=== PATIENT | female | born 1970 | race Caucasian/White ===

== ENCOUNTER 2016-11-14 14:14 | Emergency (ER) | payer OTHER ==
[2016-11-14] MEDS ORDERED: ACETAMINOPHEN 325 MG TABLET PO ONE (14:45)
--- NOTE | 2016-11-14 14:47 | ER Document Report ---
ED Medical Screen (RME) - General Stated Complaint: FLU LIKE SYMTPOMS Mode of Arrival: Ambulatory Information source: Patient Notes: Patient in place cold symptoms for the past 4 days. Patient with fever, body aches, sore throat, and cough. Occasional vomiting only after coughing. hx: None I have greeted and performed a rapid initial assessment of this patient. A comprehensive ED assessment and evaluation of the patient, analysis of test results and completion of the medical decision making process will be conducted by additional ED providers. TRAVEL OUTSIDE OF THE [place] IN LAST 30 DAYS: No - Related Data Allergies/Adverse Reactions: No Known Allergies Allergy (Verified 11/14/16 14:44) Past Medical History Past Surgical History: Reports: Hx Section - Immunizations Hx Diphtheria, Pertussis, Tetanus Vaccination: Yes Physical Exam - Vital signs Vitals: Temp Pulse Resp BP Pulse Ox 101.8 F H 100 18 119/75 99 11/14/16 14:43 11/14/16 14:43 11/14/16 14:43 11/14/16 14:43 11/14/16 14:43 - Respiratory Respiratory status: No respiratory distress Breath sounds: Nonproductive cough, Rhonchi Course - Vital Signs Vital signs: Temp Pulse Resp BP Pulse Ox 101.8 F H 100 18 119/75 99 11/14/16 14:43 11/14/16 14:43 11/14/16 14:43 11/14/16 14:43 11/14/16 14:43
--- NOTE | 2016-11-14 16:43 | ER Document Report ---
ED General - General Chief Complaint: Flu Symptoms Stated Complaint: FLU LIKE SYMTPOMS Mode of Arrival: Ambulatory TRAVEL OUTSIDE OF THE [place] IN LAST 30 DAYS: No - HPI Patient complains to provider of: flulike symptoms fever Notes: Patient in place cold symptoms for the past 4 days. Patient with fever, body aches, sore throat, and cough. Occasional vomiting only after coughing. Patient denies any recent travel denies any recent antibiotics. Patient otherwise looks nontoxic upon evaluation in the examination room - Related Data Allergies/Adverse Reactions: No Known Allergies Allergy (Verified 11/14/16 14:44) Past Medical History - General Information source: Patient - Social History Smoking Status: Never Smoker Chew tobacco use (# tins/day): No Family History: Reviewed & Not Pertinent Patient has suicidal ideation: No Patient has homicidal ideation: No Renal/ Medical History: Denies: Hx Peritoneal Dialysis Past Surgical History: Reports: Hx Section - Immunizations Hx Diphtheria, Pertussis, Tetanus Vaccination: Yes Review of Systems - Review of Systems Constitutional: Fever, Malaise EENT: No symptoms reported Cardiovascular: No symptoms reported Respiratory: No symptoms reported Gastrointestinal: No symptoms reported Genitourinary: No symptoms reported Female Genitourinary: No symptoms reported Musculoskeletal: Muscle pain Skin: No symptoms reported Hematologic/Lymphatic: No symptoms reported Neurological/Psychological: No symptoms reported -: Yes All other systems reviewed and negative Physical Exam - Vital signs Vitals: Temp Pulse Resp BP Pulse Ox 101.8 F H 100 18 119/75 99 11/14/16 14:43 11/14/16 14:43 11/14/16 14:43 11/14/16 14:43 11/14/16 14:43 Interpretation: Normal - General General appearance: Appears well, Alert - HEENT Head: Normocephalic, Atraumatic Eyes: Normal Conjunctiva: Normal Cornea: Normal Extraocular movements intact: Yes Pupils: PERRL Ears: Normal External canal: Normal Tympanic membrane: Normal Sinus: Normal Nasal: Normal Mouth/Lips: Normal Pharynx: Peritonsillar abscess - Respiratory Respiratory status: No respiratory distress Chest status: Nontender Breath sounds: Normal Chest palpation: Normal - Cardiovascular Rhythm: Regular Heart sounds: Normal auscultation Murmur: No - Abdominal Inspection: Normal Distension: No distension Bowel sounds: Normal Tenderness: Nontender Organomegaly: No organomegaly - Back Back: Normal, Nontender - Extremities General upper extremity: Normal inspection, Nontender, Normal color, Normal ROM , Normal temperature General lower extremity: Normal inspection, Nontender, Normal color, Normal ROM , Normal temperature, Normal weight bearing. No: Essie's sign - Neurological Neuro grossly intact: Yes Cognition: Normal Orientation: AAOx4 [place] Coma Scale Eye Opening: Spontaneous [place] Coma Scale Verbal: Oriented [place] Coma Scale Motor: Obeys Commands [place] Coma Scale Total: 15 Speech: Normal Motor strength normal: LUE, RUE, LLE, RLE Sensory: Normal - Psychological Associated symptoms: Normal affect, Normal mood - Skin Skin Temperature: Warm Skin Moisture: Dry Skin Color: Normal Course - Re-evaluation Re-evalutation: 11/14/16 19:53 Patient's chest x-rays negative. Patient's symptoms were more likely viral in nature possible influenza. Patient has been evaluated for flulike symptoms. At this time there is no signs of serious illness no signs of sepsis or other serious etiologies. Patient was educated about the disease process. Patient was placed on the appropriate medications to help with their symptoms. Patient was also encouraged to drink plenty of fluids and stay well hydrated. Patient is to followup with their primary care provider. - Vital Signs Vital signs: Temp Pulse Resp BP Pulse Ox 98.9 F 89 16 123/72 97 11/14/16 16:53 11/14/16 16:53 11/14/16 16:53 11/14/16 16:53 11/14/16 16:53 Discharge - Discharge Clinical Impression: Fever Qualifiers: Fever type: due to other condition Qualified Code(s): R50.81 - Fever presenting with conditions classified elsewhere Condition: Good Disposition: HOME, SELF-CARE Instructions: Influenza ([facility]) [id number], Acetaminophen, Ibuprofen (General) ( [facility]) Additional Instructions: Your examination 2 days consistent with a viral illness more likely the flu. Please drink plenty water to stay hydrated. If her symptoms worsen please return to the ER or see her primary care provider. Please take Tylenol Motrin alternating every 4 hours to keep your fever and pain control. I will give you a prescription for some prednisone for the next few days to help out with your cough sore throat and congestion. Prescriptions: Prednisone [Deltasone 20 mg Tablet] 2 tab PO DAILY 5 Days Forms: Return to Work
[2016-11-14 16:59] VITALS: BP 123/72
== END 2016-11-14 16:50 | disposition home or self-care (01) ==
LOC: ER 14:14
DX: R50.81 Fever presenting with conditions classified elsewhere (principal); R50.9 Fever, unspecified; R52 Pain, unspecified; J02.9 Acute pharyngitis, unspecified; R05 Cough
CPT/HCPCS: 71020; 99283

== ENCOUNTER 2017-11-29 13:38 | Emergency (ER) | payer OTHER ==
[2017-11-29 13:46] VITALS: BP 153/84
--- NOTE | 2017-11-29 14:20 | ER Document Report ---
HPI - HPI Patient complains to provider of: Sick for 1 week Onset: Last week Pain Level: 2 Context: 47-year-old female with nasal congestion, sinus pain, left sinus swelling, numbness and swelling under her nose, cough, cannot hear out of her left ear. 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 No fever. Associated Symptoms: None Exacerbated by: Denies Relieved by: Denies Similar symptoms previously: Yes Recently seen / treated by doctor: No - ROS ROS below otherwise negative: Yes Systems Reviewed and Negative: Yes All other systems reviewed and negative - RESPIRATORY Respiratory: REPORTS: Coughing - REPRODUCTIVE Reproductive: DENIES: : Past Medical History - General Information source: Patient - Social History Smoking Status: Never Smoker Chew tobacco use (# tins/day): No Frequency of alcohol use: None Drug Abuse: None Lives with: Family Family History: Reviewed & Not Pertinent Patient has suicidal ideation: No Patient has homicidal ideation: No - Medical History Medical History: Negative Renal/ Medical History: Denies: Hx Peritoneal Dialysis Past Surgical History: Reports: Hx Section, Hx Gynecologic Surgery - D& C - Immunizations Hx Diphtheria, Pertussis, Tetanus Vaccination: Yes Vertical Provider Document - CONSTITUTIONAL Agree With Documented VS: Yes Exam Limitations: No Limitations - INFECTION CONTROL TRAVEL OUTSIDE OF THE [place] IN LAST 30 DAYS: No - HEENT HEENT: Normocephalic, Pharyngeal Erythema, Tympanic Membrane Bulging - Left purulent effusion minimal bulge. negative: Conjuctival Injection Notes: Boggy congested nares with inflamed red upper lip under the nose skin. No angioedema - NECK Neck: Supple. negative: Lymphadenopathy-Left, Lymphadenopathy-Right - RESPIRATORY Respiratory: Breath Sounds Normal, No Respiratory Distress O2 Sat by Pulse Oximetry: 98 - CARDIOVASCULAR Cardiovascular: Regular Rate, Regular Rhythm - MUSCULOSKELETAL/EXTREMETIES Musculoskeletal/Extremeties: MAEW - NEURO Level of Consciousness: Awake, Alert - DERM Integumentary: Warm, Dry, No Rash Course - Vital Signs Vital signs: Temp Pulse Resp BP Pulse Ox 98.6 F 104 H 16 153/84 H 98 11/29/17 13:43 11/29/17 13:43 11/29/17 13:43 11/29/17 13:43 11/29/17 13:43 Discharge - Discharge Clinical Impression: Sinusitis Qualifiers: Sinusitis location: other Chronicity: acute Recurrence: non-recurrent Qualified Code(s): J01.80 - Other acute sinusitis Left otitis media Qualifiers: Otitis media type: suppurative Chronicity: acute Recurrence: not specified as recurrent Spontaneous tympanic membrane rupture: without spontaneous rupture Qualified Code(s): H66.002 - Acute suppurative otitis media without spontaneous rupture of ear drum, left ear Condition: Good Disposition: HOME, SELF-CARE Instructions: Augmentin ([facility]), Otitis Media ([facility]), Sinusitis ([facility]) Additional Instructions: warm compress to sinus afrin for 2 days only, after use spray saline up nostrils to get the mucous out cool mist humdifier at night, wash it out daily see your doctor if worse Prescriptions: Amoxicillin/Potassium Clav [Augmentin 875-125 Tablet] 1 each PO BID #20 tablet Forms: Return to Work
== END 2017-11-29 14:47 | disposition home or self-care (01) ==
LOC: ER 13:38
DX: J01.80 Other acute sinusitis (principal); R09.81 Nasal congestion
CPT/HCPCS: 99283

== ENCOUNTER 2020-03-08 09:33 | Emergency (ER) | payer OTHER ==
[2020-03-08 09:40] VITALS: BP 167/85
--- NOTE | 2020-03-08 11:12 | ER Document Report ---
ED General - General Chief Complaint: Arm Pain Stated Complaint: ARM PAIN Time Seen by Provider: 03/08/20 10:50 Notes: Healthy 50-year-old lady presents with pain and mild swelling in the medial aspect of her distal left upper arm medial to her elbow. No discoloration no trauma no history of DVT or PE no recent lines no distal numbness tingling or pain, no other swelling. TRAVEL OUTSIDE OF THE [place] IN LAST 30 DAYS: No - Related Data Allergies/Adverse Reactions: No Known Allergies Allergy (Verified 11/29/17 13:41) Past Medical History - General Information source: Patient - Social History Smoking Status: Never Smoker Family History: Reviewed & Not Pertinent Patient has homicidal ideation: No Renal/ Medical History: Denies: Hx Peritoneal Dialysis Past Surgical History: Reports: Hx Section, Hx Gynecologic Surgery - D&C - Immunizations Hx Diphtheria, Pertussis, Tetanus Vaccination: Yes Review of Systems - Review of Systems Notes: I REVIEW OF SYSTEMS GEN: Denies fever, chills, weight loss ENT: Denies sore throat, nasal discharge, ear pain EYES: Denies blurry vision, eye pain, discharge CV: Denies chest pain, palpitations, edema RESP: Denies cough, shortness of breath, wheezing GI: Denies abdominal pain, nausea, vomiting, diarrhea MSK: Arm pain swelling SKIN: Denies rash, skin lesions LYMPH: Denies swollen glands/lymph nodes NEURO: Denies headache, focal weakness or numbness, dizziness PSYCH: Denies depression, suicidal or homicidal ideation PHYSICAL EXAMINATION General: No acute distress, well-nourished Head: Atraumatic, normocephalic ENT: Mouth normal, oropharynx moist, no exudates or tonsillar enlargement Eyes: Conjunctiva normal, pupils equal, lids normal Neck: No JVD, supple, no guarding CVS: Normal rate, regular rhythm, no murmurs Resp: No resp distress, equal and normal breath sounds bilaterally GI: Nondistended, soft, no tenderness to palpation, no rebound or guarding Ext: Left arm pain on palpation medial to the medial epicondyle with no discernible knots tenderness swelling masses or edema Back: No CVA or midline TTP Skin: No rash, warm Lymphatic: No lymphadeopathy noted? Left epitrochlear lymphadenopathy Neuro: Awake, alert. Face symmetric. GCS 15. Physical Exam - Vital signs Vitals: Temp Pulse Resp BP Pulse Ox 98.3 F 71 18 167/85 H 98 03/08/20 09:38 03/08/20 09:38 03/08/20 09:38 03/08/20 09:38 03/08/20 09:38 Course - Re-evaluation Re-evalutation: 03/08/20 18:26 Arm swellingno evidence of DVT, infection and compartment syndrome etc. Could be lymphadenopathy? No distal infection Recommended Jerardo wrap compression ice and follow-up. Do not think she needs labs or imaging at this point. She has no risk factors for DVT in that extremity. I have discussed with the patient there likely diagnosis, aftercare plan, follow- up plans and my usual and customary return precautions. They verbalized understanding of this. - Vital Signs Vital signs: Temp Pulse Resp BP Pulse Ox 98.3 F 71 18 167/85 H 98 03/08/20 09:40 03/08/20 09:38 03/08/20 09:38 03/08/20 09:38 03/08/20 09:38 Discharge - Discharge Clinical Impression: Left arm pain Condition: Good Disposition: HOME, SELF-CARE Additional Instructions: As we discussed there is no evidence of blood clot infection or abscess in your arm. Please wrap and Jerardo wrap elevate use ice for pain, if he develop any drainage redness fever chills armpit pain or other symptoms that worry you please return to the ER. Forms: Return to Work
== END 2020-03-08 11:40 | disposition home or self-care (01) ==
LOC: ER 09:33
DX: M79.622 Pain in left upper arm (principal)
CPT/HCPCS: 99283